=== PATIENT | male | born 1995 | race African-American/Black ===

== ENCOUNTER 2021-08-18 06:56 | Emergency (ER) | payer OTHER, SELFPAY ==
[2021-08-18] MEDS ORDERED: diphenhydrAMINE 25 MG CAP ONE (07:43)
== END 2021-08-18 07:45 | disposition home or self-care (01) ==
LOC: ERS 06:56
DX: T78.1XXA Other adverse food reactions, not elsewhere classified, initial encounter (principal); R22.0 Localized swelling, mass and lump, head; F17.210 Nicotine dependence, cigarettes, uncomplicated
CPT/HCPCS: 99284

== ENCOUNTER 2024-02-03 13:32 | Emergency (ER) | payer SELFPAY ==
[2024-02-03] MEDS ORDERED: Boostrix 0.5 ML (Tdap) VIAL (>/=7 yrs of age) ONE (14:04)
[2024-02-03] MEDS ORDERED: Ibuprofen 800 MG TAB ONE (14:24)
[2024-02-03] MEDS ORDERED: HYDROcodone/Acetaminophen 5/325 mg Tablet ONE (16:30)
[2024-02-03] MEDS ORDERED: cefTRIAXone (ROCEPHIN) 1 GM VIAL ONE (16:34)
[2024-02-03] MEDS ORDERED: Lidocaine 1% MPF 2 ML VIAL ONE (16:34)
== END 2024-02-03 17:13 | disposition home or self-care (01) ==
LOC: ERS 13:32
DX: S62.330B Displaced fracture of neck of second metacarpal bone, right hand, initial encounter for open fracture (principal); S00.531A Contusion of lip, initial encounter; F17.210 Nicotine dependence, cigarettes, uncomplicated; W23.1XXA Caught, crushed, jammed, or pinched between stationary objects, initial encounter; Z23 Encounter for immunization
CPT/HCPCS: 29125; 90471; 90715; 96372; J0696

== ENCOUNTER 2024-04-13 18:18 | Emergency (ER) | payer OTHER, SELFPAY ==
[2024-04-13 19:17] LABS: #Basophils 0.06 10x3/uL (0.0-0.2); %Basophils 1.6 % (0.0-1.0); %Eosinophils 1.8 % (0.0-10.0); %Lymphocytes 18.7 % (21.0-51.0); %Monocytes 13.9 % (0.0-10.0); %Neutrophils 63.5 % (42.0-75.0); Hemoglobin 12.4 g/dL (14.0-18.0); Mean Corpuscular HGB CONC 35.4 g/dL (32.0-36.0); Mean Corpuscular Hemoglobin 35.7 pg (27.0-31.0); Mean Corpuscular Volume 100.9 fL (78.0-98.0); Mean Platelet Volume 9.9 fL (7.4-10.4); Platelet Count 169 10x3/uL (130-400); RBC Distribution Width 14.9 % (11.5-14.5); Red Blood Cell (RBC) Count 3.47 mill/uL (4.70-6.10)
[2024-04-13 19:49] LABS: Calc. Creatinine Clearance 0 mL/min (70-130); Estimated GFR 124
[2024-04-13 19:51] LABS: ALT (SGPT) 62 U/L (8-55); AST (SGOT) 76 U/L (5-34); Albumin 3.9 g/dL (3.5-5.0); Alkaline Phosphatase 89 U/L (40-110); Anion Gap 14 mmol/L (10-20); BUN (Urea Nitrogen) 10 mg/dL (8.9-20.6); Bilirubin, Total 1.3 mg/dL (0.2-1.2); Calcium 8.6 mg/dL (7.8-10.44); Carbon Dioxide 24 mmol/L (22-29); Chloride 103 mmol/L (98-107); Globulin 3.8 g/dL (2.4-3.5); Glucose 65 mg/dL (70-105); Protein, Total 7.7 g/dL (6.0-8.3); Sodium 138 mmol/L (136-145)
[2024-04-13] MEDS ORDERED: Potassium Chloride 20 MEQ TAB ONE (20:23)
== END 2024-04-13 20:37 | disposition home or self-care (01) ==
LOC: ERS 18:18
DX: E87.6 Hypokalemia (principal); Z71.1 Person with feared health complaint in whom no diagnosis is made; B20 Human immunodeficiency virus [HIV] disease; I10 Essential (primary) hypertension; F17.210 Nicotine dependence, cigarettes, uncomplicated
CPT/HCPCS: 36415; 71045; 80053; 85025; 86850; 86900; 86901; 99283